=== PATIENT | female | born 1985 | race African-American/Black ===

== ENCOUNTER 2017-05-21 20:33 | Emergency (ER) | payer OTHER ==
[~2017-05-21] VITALS: Ht 165.1 cm; Wt 133.8 kg
[~2017-05-21 20:33] MED LIST: DOCU100C16 PO; FERR325T3 PO; NORCOTAB PO; OMEP20CA3 PO; VITA500046 PO; [UNRECOGNIZED DRUG - OTHER] PR
[2017-05-21] MEDS ORDERED: NS 1,000 ML IV ONE (21:45)
[2017-05-21 22:10] LABS: BASO % 0.3 % (0.0-1.0); EOS # 0.1 10^3/uL (0.0-0.50); EOS % 0.8 % (0.0-3.0); IMMATURE GRANULOCYTE % 0.3 % (0-0); LYMPH # 2.9 10^3/uL (1.5-4.5); LYMPH % 28.6 % (24.0-44.0); MEAN CORPUSCULAR HGB CONC 32.1 g/dl (32.0-36.5); MEAN CORPUSCULAR VOLUME 90.3 fl (80.0-96.0); MONO # 0.7 10^3/uL (0.0-0.8); NEUTROPHILS # 6.5 10^3/uL (1.8-7.7); PLATELET COUNT, AUTOMATED 266 10^3/uL (150-450); RED CELL DISTRIBUTION WIDTH 13.6 % (11.5-14.5); WHITE BLOOD COUNT 10.3 10^3/uL (4.0-10.0)
[2017-05-21 22:17] LABS: ALBUMIN 3.7 GM/DL (3.2-5.2); ALBUMIN/GLOBULIN RATIO 1.03 (1.00-1.93); ALKALINE PHOSPHATASE 75 U/L (45-117); ALT/SGPT 21 U/L (12-78); ANION GAP 5 MEQ/L (8-16); AST/SGOT 11 U/L (7-37); BILIRUBIN,DIRECT < 0.1 MG/DL (0.0-0.2); BILIRUBIN,TOTAL 0.4 MG/DL (0.2-1.0); BLOOD UREA NITROGEN 12 MG/DL (7-18); CALCIUM LEVEL 8.8 MG/DL (8.5-10.1); CARBON DIOXIDE LEVEL 29 MEQ/L (21-32); CHLORIDE LEVEL 105 MEQ/L (98-107); CREATININE FOR GFR 0.98 MG/DL (0.55-1.02); GLOMERULAR FILTRATION RATE > 60.0 (>60); GLUCOSE, FASTING 73 MG/DL (70-105); POTASSIUM SERUM 3.9 MEQ/L (3.5-5.1); SODIUM LEVEL 139 MEQ/L (136-145); TOTAL PROTEIN 7.3 GM/DL (6.4-8.2)
[2017-05-21] MEDS ORDERED: ISOVUE-370 76% 100ML VIAL (Q9967) As Ordered ONE (22:48)
--- NOTE | 2017-05-22 00:50 | REPUSA ---
CLINICAL HISTORY: Abdominal pain. TECHNIQUE: Multiple axial, sagittal and coronal CT images were obtained through the abdomen and pelvi s after administration of oral and intravenous contrast material. COMMENTS: The liver is mildly enlarged without mass or defect. Fatty liver infiltration. There is no intra or e xtrahepatic biliary ductal dilatation. The spleen is normal. The gallbladder is within normal limits. The pancreas is of normal contour and attenuation characteristics. There is no evidence of adrenal m ass. Both kidneys demonstrate prompt and equal nephrograms. The kidneys are normal in size, shape and conf iguration. There is no evidence of renal or ureteral mass. No renal or ureteral calculi are identifie d. There is no hydroureter or hydronephrosis. No evidence for appendicitis. There is no bowel wall thickening. No evidence for small or large mariano l obstruction. There is no evidence of abdominal ascites or lymphadenopathy. There is no evidence of intrinsic or extrinsic bladder mass. There is no pelvic ascites or lymphadeno gallito. Moderate amount of fecal residue in the large bowels. Moderately enlarged uterus. Moderate amount of fecal residue in the large bowels. Calcified uterine fibroids with the largest measuring 5.3 cm. Images of the lung bases show no evidence of pleural or parenchymal mass. There are no pleural effusi ons. The bony structures are free of lytic or blastic lesions. Acute abdominal wall umbilical hernia containing mildly thickened fat. IMPRESSION: Moderate amount of fecal residue in the large bowels. Enlarged uterus with multiple peripheral calcified uterine fibroids. Mild hepatomegaly with fatty infiltration. Umbilical hernia containing thickened fat. This may represent a chronic appearance. Clinical evaluati on is suggested to exclude incarceration. Thank you for your kind referral of this patient.
[2017-05-22 01:32] VITALS: BP 119/74
== END 2017-05-22 01:44 | disposition home or self-care (01) ==
LOC: M ED 20:33
DX: K42.9 Umbilical hernia without obstruction or gangrene (principal)
CPT/HCPCS: 74177; 80048; 80076; 83690; 85025; 96360; 96361; 99284; Q9967

== ENCOUNTER 2018-07-21 11:13 | Emergency (ER) | payer OTHER ==
[~2018-07-21] VITALS: Ht 165.1 cm; Wt 105.5 kg
[2018-07-21] MEDS ORDERED: NS 1,000 ML IV ONE (12:15)
[2018-07-21 12:42] LABS: BASO % 0.2 % (0.0-1.0); HEMATOCRIT 36.9 % (36.0-47.0); HEMOGLOBIN 11.8 g/dl (12.0-15.5); LYMPH # 1.1 10^3/uL (1.5-4.5); LYMPH % 9.9 % (24.0-44.0); MEAN CORPUSCULAR HEMOGLOBIN 28.8 pg (27.0-33.0); MONO % 8.9 % (0.0-5.0); NEUTROPHILS % 80.5 % (36.0-66.0); PLATELET COUNT, AUTOMATED 142 10^3/uL (150-450); WHITE BLOOD COUNT 11.2 10^3/uL (4.0-10.0)
[2018-07-21 13:25] LABS: HCG, SERUM QUALITATIVE NEGATIVE (NEGATIVE)
[2018-07-21 13:31] LABS: BLOOD UREA NITROGEN 4 MG/DL (7-18); CALCIUM LEVEL 8.4 MG/DL (8.5-10.1); CARBON DIOXIDE LEVEL 24 MEQ/L (21-32); CHLORIDE LEVEL 107 MEQ/L (98-107); CREATININE FOR GFR 0.54 MG/DL (0.55-1.30); FREE T4 1.08 NG/DL (0.76-1.46); GLOMERULAR FILTRATION RATE > 60.0 (>60); GLUCOSE, FASTING 82 MG/DL (70-100); MAGNESIUM LEVEL 2.1 MG/DL (1.8-2.4); POTASSIUM SERUM 3.8 MEQ/L (3.5-5.1); SODIUM LEVEL 139 MEQ/L (136-145); THYROID STIMULATING HORMONE 0.377 uIU/ML (0.358-3.740)
--- NOTE | 2018-07-21 13:43 | REP ---
PORTABLE CHEST, ONE VIEW: HISTORY: Syncope COMPARISON: None The lungs are clear. The heart is normal size. The pulmonary vasculature is normal in appearance. IMPRESSION: No acute disease Electronically Signed by Jorge Godfrey MD 07/21/2018 01:53 P
[2018-07-21] MEDS ORDERED: PENI250T57 PO (14:33)
[2018-07-21 14:45] VITALS: BP 112/65
[2018-07-21] MEDS ORDERED: PENICILLIN V POTASSIUM 500 MG TAB PO ONE (14:45)
--- NOTE | 2018-07-21 18:12 | ECGEPIP ---
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
== END 2018-07-21 14:50 | disposition home or self-care (01) ==
LOC: M ED 11:13 → EDBD 11:13 → M ED 14:50
DX: R55 Syncope and collapse (principal); B97.29 Other coronavirus as the cause of diseases classified elsewhere; J02.9 Acute pharyngitis, unspecified; R94.31 Abnormal electrocardiogram [ECG] [EKG]